=== PATIENT | female | born 1980 | race Caucasian/White ===

== ENCOUNTER 2017-02-04 20:53 | Emergency (ER) | payer OTHER ==
[~2017-02-04] VITALS: Ht 167.6 cm; Wt 86.2 kg
[2017-02-04 20:53] VITALS: BP 147/106
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
--- NOTE | 2017-02-04 21:22 | NUR ---
vasculat tech at bedside.
--- NOTE | 2017-02-04 21:49 | NUR ---
vascular dwayne done.
--- NOTE | 2017-02-04 21:55 | NUR ---
Patient discharged to home in stable condition. Written and verbal after care instructions given. Patient verbalizes understanding of instruction. ambulatory with a steady gait.
== END 2017-02-04 21:56 | disposition home or self-care (01) ==
LOC: ER 20:55
DX: M79.662 Pain in left lower leg (principal)
CPT/HCPCS: 93971; 99284; A4606; Z7610